=== PATIENT | male | born 1975 | race African-American/Black ===

== ENCOUNTER 2022-09-27 14:33 | Emergency (ER) | payer BC, SELFPAY ==
[2022-09-27 15:00] VITALS: BP 190/115; PULSE 89; RESP 18; TEMP 36.6; O2SAT 100; BMI 26.4
--- NOTE | 2022-09-27 15:12 | EXP.UTC ---
Discharge Plan Disposition Patient Disposition: Home, Self-Care Condition: Good Prescriptions Prescriptions: New amoxicillin-pot clavulanate 875-125 mg Tablet 1 tab PO Q12H Qty: 20 0RF Activity Restrictions/Add. Instructions Additional Instructions/Restrictions: *Monitor Temp, Over the counter Motrin or Tylenol as directed/as needed Tylenol every 4 hours and Motrin every 6 hours (as long as your family doctor has told you that you can take it) for fever or pain. and straight to ER if unable to lower temp less than 101.0 after medication given *Warm salt water gargles may help to soothe the throat *Throat Lozenges? *Warm fluids like tea with honey may help to soothe the throat? *Sleep elevated *Humidifier/Vaporizer Make sure to Call Family Doctor for appointment for re-check of your blood pressure and further treatment you was given card of provider that is accepting patients Follow up IMMEDIATELY for new or worsening symptoms or no Noticeable improvement over the next 48-72 hours. 911 for difficulty breathing or swallowing Clinical Impressions Clinical Impression: Otitis media Qualifiers: Otitis media type: unspecified Laterality: left Qualified Code(s): H66.92 - Otitis media, unspecified, left ear Instructions Patient Instructions: Middle Ear Infection Discharge ED Provider: Tracy Cook [facility] General Stated complaint: ear pain Time Seen by Provider: 09/27/22 15:12 History of Present Illness Provider Complaint: Patient states that he has been having pain in his left ear for over a week States that he has been checking his blood pressure and it has been up and down but he doesnt have a family doctor to see to see what he needs to do or if he needs medication but he is not here for that today he wants to get his ear checked Related Data Previous Rx's Medication Instructions Recorded amoxicillin 875 mg-potassium 1 tab PO Q12H #20 tabs 09/27/22 clavulanate 125 mg tablet Allergies Allergy/AdvReac Type Severity Reaction Status Date / Time No Known Allergies Allergy Verified 09/27/22 15:20 [facility] Disclaimer: The information contained in this section may have been updated after the patient was seen, as this information can be updated by other users. Social History Smoking Status: Unknown if ever smoked alcohol intake: never current occupational status: employed Travel in the last 8 weeks: None ROS Obtained: Yes All systems reviewed & no additional complaints except as documented and Yes Systems reviewed as appropriate & no additional complaints except as documented Constitutional Constitutional: Reports system reviewed and no additional complaints, except as documented, Reports as per HPI and Denies headache(s) Eyes Eyes: Reports system reviewed and no additional complaints, except as documented, Reports as per HPI, Denies blurry vision and Denies loss of vision ENT Ears, Nose, Mouth, and Throat: Reports system reviewed and no additional complaints, except as documented, Reports as per HPI, Reports otalgia and Denies headache(s) Cardiovascular Cardiovascular: Reports system reviewed and no additional complaints, except as documented, Reports as per HPI and Denies chest pain Respiratory Respiratory: Reports system reviewed and no additional complaints, except as documented and Reports as per HPI Gastrointestinal Gastrointestingal: Reports system reviewed and no additional complaints, except as documented and as per HPI Genitourinary Male Genitourinary: Reports system reviewed and no additional complaints, except as documented and Reports as per HPI Neurologic Neurologic: Denies headache(s) and Denies loss of vision Physical Exam General General appearance: alert and in no apparent distress Expanded ENT Exam TM/Canal exam: Left TM: erythema Respiratory Respiratory exam: Present normal lung sounds bilaterally; Absent respiratory distress or wheezes Car
[2022-09-27 15:19] VITALS: BP 156/99; PULSE 85; RESP 16; TEMP 36.8; O2SAT 100; BMI 26.4
[2022-09-27 15:29] VITALS: BP 156/99; PULSE 85; RESP 16; TEMP 36.8
== END 2022-09-27 15:30 | disposition home or self-care (01) ==
LOC: ER 14:55 → UTC 14:55
PROVIDERS: Emergency Provider Nurse Practitioner
DX: H66.92 Otitis media, unspecified, left ear (principal)
CPT/HCPCS: 99212; G0463

== ENCOUNTER → 2022-10-15 14:21 | Outpatient (CLI) | payer BC, SELFPAY | PROVIDERS: PCP Family Medicine; Visit Provider Family Medicine | DX: R06.83 Snoring (principal); R53.83 Other fatigue; G47.33 Obstructive sleep apnea (adult) (pediatric) | CPT/HCPCS: G0399 ==

== ENCOUNTER 2022-10-17 19:32 | Emergency (ER) | payer BC, SELFPAY ==
[2022-10-17 19:33] VITALS: BP 153/98; PULSE 84; RESP 16; TEMP 36.5; O2SAT 97; BMI 26.6
--- NOTE | 2022-10-17 19:47 | HMH.EDEAR ---
Discharge Plan Disposition Patient Disposition: Home, Self-Care Condition: Good Prescriptions Prescriptions: New cefdinir 300 mg capsule 300 mg PO BID 10 Days Qty: 20 0RF No Action nicotine [Nicoderm CQ] 21 mg/24 hr patch 24 hour 1 patch transdermal DAILY Qty: 28 0RF amlodipine 5 mg tablet 5 mg PO DAILY Qty: 30 1RF amoxicillin-pot clavulanate 875-125 mg Tablet 1 tab PO Q12H Qty: 20 0RF Referrals Follow up/Referrals: Ellen Caro DO [Primary Care Provider] - See instructions Clinical Impressions Clinical Impression: Otitis media Discharge ED Provider: Jordy Pollack Ear HPI General Chief complaint: Ear Stated complaint: bilateral ear pain Time Seen by Provider: 10/17/22 19:32 Mode of Arrival: Ambulatory Source of Information: Patient Limitations: No Limitations Description of Symptoms (Recalled from ER Triage Doc. by RN): pt c/o bilateral ear pain x 3 weeks History of Present Illness HPI Narrative: Patient is a 47-year-old male with a past medical history of recent diagnosis of otitis media who presents with ear pain. He says that he has been having bilateral ear pain for the last 3 weeks. He says around [place] he was given a prescription for amoxicillin to treat an ear infection. He says he finished his prescription but his symptoms have continued to persist. He says he feels like he is swimming underwater. He denies any mastoid pain or tenderness. Denies any fever or chills. Related Data Previous Rx's Medication Instructions Recorded amoxicillin 875 mg-potassium 1 tab PO Q12H #20 tabs 09/27/22 clavulanate 125 mg tablet amlodipine 5 mg tablet 5 mg PO DAILY #30 tabs 09/28/22 nicotine 21 mg/24 hr daily 1 patch transdermal DAILY #28 ea 09/28/22 transdermal patch (Nicoderm CQ) cefdinir 300 mg capsule 300 mg PO BID 10 days #20 caps 10/17/22 Allergies Allergy/AdvReac Type Severity Reaction Status Date / Time No Known Allergies Allergy Verified 09/28/22 11:07 [facility] Disclaimer: The information contained in this section may have been updated after the patient was seen, as this information can be updated by other users. Surgical History (Updated 09/28/22 @ 11:09 by DyanaLINDA Culp No history of previous surgery Social History (Updated 09/27/22 @ 15:27 by Tracy Cook APRN) Smoking Status: Never smoker alcohol intake: never current occupational status: employed Travel in the last 8 weeks: None ROS Obtained: Yes All systems reviewed & no additional complaints except as documented A 14 point review of system was obtained and otherwise negative except per HPI Physical Exam General General appearance: alert and in no apparent distress Head Head exam: atraumatic, normocephalic and normal inspection Eye Eye exam: Present normal appearance, PERRL and EOMI ENT ENT exam: Present normal exam, normal oropharynx, mucous membranes moist and normal external ear exam Expanded ENT Exam TM/Canal exam: Bilateral TM: erythema, bulging and effusion Neck Neck exam: Present normal inspection, full ROM and trachea midline; Absent meningismus or lymphadenopathy Chest Chest inspection: Present normal inspection and symmetric chest wall rise; Absent tenderness Respiratory Respiratory exam: Present normal lung sounds bilaterally; Absent respiratory distress Cardiovascular Cardiovascular exam: Present regular rate and normal rhythm; Absent JVD Abdominal Exam Abdominal exam: Present soft and normal bowel sounds; Absent distention, tenderness or guarding Extremities Exam Extremities exam: Present normal inspection, full ROM and normal capillary refill; Absent calf tenderness Back Exam Back exam: Present normal inspection; Absent tenderness Neurological Exam Neurological exam: Present alert and oriented X3 Psychiatric Psychiatric exam: Present normal affect and normal mood Skin Skin exam: Present warm, dry, intact and normal color Lymphatic Lymphatic F
[2022-10-17 19:52] VITALS: BP 153/98; PULSE 84; RESP 16; TEMP 36.5; O2SAT 97
== END 2022-10-17 19:54 | disposition home or self-care (01) ==
LOC: ER 19:42
PROVIDERS: Emergency Provider Student in an Organized Health Care Education/Training Program; PCP Family Medicine
DX: H66.93 Otitis media, unspecified, bilateral (principal)
CPT/HCPCS: 99283; 99284

== ENCOUNTER → 2022-10-26 10:51 | Outpatient (CLI) | payer BC, SELFPAY ==
[2022-10-26 10:56] LABS: MANUAL DIFFERENTIAL MANUAL DIFFERENTIAL (MANUAL DIFF); Microscopic, Urine URINE MICROSCOPIC (MICROSCOPIC)
[2022-10-26 11:28] LABS: Appearance,Urine CLEAR (Clear); Bilirubin,Urine Negative (Negative); Blood, Urine Negative (Negative); Color,Urine YELLOW (Yellow); Glucose,Urine (UA) Negative (Negative); Ketones,Urine Negative (Negative); Leukocyte Esterase,Urine Negative (Negative); Nitrate,Urine Negative (Negative); Protein,Urine Negative (Negative); Urobilinogen,Urine 0.2 EU/dl (0.2)
[2022-10-26 11:30] LABS: Basophils # 0.1 K/mm3 (0-0.2); Eosinophils # 0.3 K/mm3 (0.0-0.4); Eosinophils % 5.2 % (0.1-12.0); Hematocrit 43.1 % (42.0-52.0); Lymphocytes # 3.4 K/mm3 (0.7-4.5); Lymphocytes % 57.7 % (10-50); Mean Corpuscular HGB Conc 32.6 g/dL (31.8-35.4); Mean Corpuscular Hemoglobin 29.8 pg (27.0-31.2); Mean Corpuscular Volume 91.5 fl (80-94); Mean Platelet Volume 7.7 fl (7.4-10.4); Monocytes # 0.4 K/mm3 (0.1-1.0); Monocytes % 6.1 % (1.7-9.3); Neutrophils # 1.8 K/mm3 (1.8-7.8); Neutrophils % 30.1 % (37.0-80.0); Platelet Count 276 K/mm3 (142-424); Red Cell Distribution Width 13.8 % (11.5-17.5); White Blood Count 5.8 K/mm3 (4.8-10.8)
[2022-10-26 11:37] LABS: Bacteria,Urine Trace /lpf; WBC,Urine Occasional #/hpf (0-3)
[2022-10-26 11:51] LABS: Alanine Aminotransferase 35 U/L (12-78); Albumin Level 4.6 g/dl (3.5-5.0); Albumin/Globulin Ratio 1.9 (1.1-1.8); Alkaline Phosphatase 64 U/L (38-126); Anion Gap 7.7 mEq/L (5-15); Aspartate Amino Transferase 42 U/L (17-59); Bilirubin,Total 0.3 mg/dl (0.2-1.3); Blood Urea Nitrogen 7 mg/dl (9-20); Calcium 8.6 mg/dl (8.4-10.2); Carbon Dioxide 31 mmol/L (22.0-30.0); Chloride 105 mmol/L (98-107); Chol/HDL Ratio 4.4 (1-3.5); Cholesterol 226 mg/dl (140-200); Eosinophils % 2 % (0-3); Estimated Glomerular Filt Rate 80 ml/min (>60); GFR (African American) 97 ML/MIN (>60); Globulin 2.4 g/dL (1.3-3.2); Glucose 98 mg/dl (74-100); HDL Cholesterol 51 mg/dl (40-60); Lymphocytes % 62 % (10-50); Monocytes % 6 % (2-9); Neutrophils % 30 % (42-76); Potassium 3.7 mmoL/L (3.5-5.1); Sodium 140 mmol/L (136-145); Total Cells Counted 100; Triglycerides 216 mg/dl (30-150); VLDL Cholesterol 43 mg/dL (0-40)
[2022-10-26 11:52] LABS: Platelet Estimate Normal; RBC Morphology Normal
[2022-10-26 12:03] LABS: Direct LDL Cholesterol 110.63 mg/dL (100-129)
[2022-10-26 12:22] LABS: Prostate Specific Ag Screen 0.4 ng/ml (0.0-4.0); Thyroid Stimulating Hormone 0.79 uIU/mL (0.465-4.68)
== END ==
PROVIDERS: PCP Family Medicine; Visit Provider Family Medicine
DX: I10 Essential (primary) hypertension (principal); R53.83 Other fatigue; Z12.5 Encounter for screening for malignant neoplasm of prostate
CPT/HCPCS: 36415; 80053; 80061; 81001; 84443; 85007; 85014; 85018; 85048; 85049; G0103

== ENCOUNTER → 2023-01-18 11:20 | Outpatient (CLI) | payer BC, SELFPAY ==
[2023-01-18 12:35] LABS: Chloride 103 mmol/L (98-107); Potassium 4.3 mmoL/L (3.5-5.1); Sodium 139 mmol/L (136-145)
[2023-01-18 12:37] LABS: Alanine Aminotransferase 54 U/L (12-78); Aspartate Amino Transferase 49 U/L (17-59); Bilirubin,Total 0.5 mg/dl (0.2-1.3); Blood Urea Nitrogen 7 mg/dl (9-20); Estimated Glomerular Filt Rate 90 ml/min (>60); GFR (African American) 109 ML/MIN (>60)
[2023-01-18 12:38] LABS: Albumin Level 4.9 g/dl (3.5-5.0); Albumin/Globulin Ratio 2.1 (1.1-1.8); Alkaline Phosphatase 67 U/L (38-126); Anion Gap 8.3 mEq/L (5-15); Calcium 9.2 mg/dl (8.4-10.2); Carbon Dioxide 32 mmol/L (22.0-30.0); Chol/HDL Ratio 3.5 (1-3.5); Cholesterol 220 mg/dl (140-200); Globulin 2.3 g/dL (1.3-3.2); Glucose 98 mg/dl (74-100); HDL Cholesterol 63 mg/dl (40-60); Total Protein,Serum 7.2 g/dl (6.3-8.2); Triglycerides 147 mg/dl (30-150); VLDL Cholesterol 29 mg/dL (0-40)
== END ==
PROVIDERS: PCP Family Medicine; Visit Provider Family Medicine
DX: I10 Essential (primary) hypertension (principal); E78.5 Hyperlipidemia, unspecified
CPT/HCPCS: 36415; 80053; 80061

== ENCOUNTER → 2023-04-21 12:03 | Outpatient (CLI) | payer BC, SELFPAY ==
[2023-04-21 13:27] LABS: Alanine Aminotransferase 29 U/L (12-78); Albumin Level 4.1 g/dl (3.5-5.0); Alkaline Phosphatase 63 U/L (38-126); Anion Gap 8.2 mEq/L (5-15); Aspartate Amino Transferase 44 U/L (17-59); Bilirubin,Total 0.3 mg/dl (0.2-1.3); Blood Urea Nitrogen 10 mg/dl (9-20); Calcium 8.7 mg/dl (8.4-10.2); Carbon Dioxide 28 mmol/L (22.0-30.0); Chloride 108 mmol/L (98-107); Chol/HDL Ratio 3.5 (1-3.5); Cholesterol 182 mg/dl (140-200); Estimated Glomerular Filt Rate 79 ml/min (>60); GFR (African American) 96 ML/MIN (>60); Globulin 2.1 g/dL (1.3-3.2); Glucose 100 mg/dl (74-100); HDL Cholesterol 52 mg/dl (40-60); Potassium 4.2 mmoL/L (3.5-5.1); Sodium 140 mmol/L (136-145); Total Protein,Serum 6.2 g/dl (6.3-8.2); Triglycerides 63 mg/dl (30-150); VLDL Cholesterol 13 mg/dL (0-40)
[2023-04-21 13:38] LABS: Direct LDL Cholesterol 97.97 mg/dL (100-129)
== END ==
PROVIDERS: PCP Nurse Practitioner Family; Visit Provider Family Medicine
DX: E78.5 Hyperlipidemia, unspecified (principal); I10 Essential (primary) hypertension
CPT/HCPCS: 36415; 80053; 80061

== ENCOUNTER 2023-09-22 12:26 | Day surgery (SDC) | payer BC, SELFPAY ==
[2023-09-20 14:16] VITALS: BMI 25.8
[2023-09-22 13:12] VITALS: BP 159/94; PULSE 72; RESP 18; TEMP 36.7; O2SAT 98
--- NOTE | 2023-09-22 14:25 | EXP.ANES.CKL ---
[facility] Disclaimer: The information contained in this section may have been updated after the patient was seen, as this information can be updated by other users. Medical History Carpal tunnel syndrome Hyperlipidemia Hypertension Surgical History No history of previous surgery Family History Other Family history of diabetes mellitus type II Family history of hypertension Social History Smoking Status: Current every day smoker tobacco type: cigarettes quit status: considering quitting alcohol intake: never substance use type: denies use current occupational status: employed Travel in the last 8 weeks: None caffeine: No [facility] Anesthesia Checklist Patient Identification Patient Identification: Arm Band and Verbal (Name & ) Structural Data Admitted From: Home Planned Operative Procedure/s: Colonoscopy Consent for Planned Operative Procedure(s) Verified: Yes Verified Documents: Surgical Consent and History and Physical NPO Status Verified Time NPO: 05:00 Chart Verification Results Verified: CBC and BMP Additional verifications Patient : No Anesthesia Reactions: No Cardiovascular Assessment Heart Sounds: S1 & S2 Pulse Rhythm: Irregular Peripheral Edema: No Airway Assessment Mallampati Score:: Class II C-Spine Mobility Assessed: Yes (FROM) TMJ Mobility Assessed: Yes Dentition: Edentulous Neurological Assessment Level of Consciousness: Awake, Alert, Appropriate and Follows Commands Hx Seizures: No Numbness or tingling in extremities: No Anesthesia Plan Anesthesia Risk discussed: Yes Anesthesia Plan: Verified ASA Class: III Anesthesia Type: MAC
[2023-09-22 14:29] VITALS: O2SAT 98
--- NOTE | 2023-09-22 14:37 | HMH.SCOPE ---
Procedure: Date: 09/22/23 Patient Date of :: 1975 Procedure Performed:: Colonoscopy Indications:: Screening colonoscopy Performing Provider:: Edward Vazquez MD Referring Provider:: Maria Del Carmen Desir APRN Sedation:: See RN records Procedure:: After placing the patient in the left lateral decubitus position, the colonoscopy was gently inserted into the rectum and under direct visualization advanced to the sigmoid colon. The bowel preparation was inadequate for screening and the procedure was aborted. Findings:: Inadequate bowel preparation for screening colonoscopy. The procedure was aborted Recommendations:: Repeat colonscopy with 2 days liquid diet and split dose bowel preparation Complications:: None Estimated blood obtained (mL): 0 Colonoscopy Component Colonoscopy Component Was a colonoscopy performed during today's procedure?: Yes Recommended follow up colonoscopy of at least 10 years?: Yes
[2023-09-22 14:41] VITALS: BP 131/81; PULSE 76; RESP 14; TEMP 36.4; O2SAT 96
--- NOTE | 2023-09-22 14:48 | P.PNANES_ITS ---
[facility] Anesthesia Record Part I Anesthesia Record I Intake, IV Amount: 300 Hydration: Adequate Estimated blood loss (mL): 0 Urine output (mL): 0 Blood Products used (#): none Blood Pressure: 131/81 SaO2: 96 Pulse Rate: 83 Airway Patency: Patent Respiratory Rate: 16 Temperature: 97.5 F Patient is:: Awake (Talking) Stable to PACU at:: 14:45
[2023-09-22 14:49] VITALS: BP 131/81; PULSE 83; RESP 16; TEMP 36.4; O2SAT 96
[2023-09-22 14:50] VITALS: BP 143/79; PULSE 69; RESP 16; O2SAT 98
[2023-09-22 15:00] VITALS: BP 152/98; PULSE 72; RESP 16; O2SAT 99
== END 2023-09-22 15:01 | disposition home or self-care (01) ==
PROVIDERS: PCP Nurse Practitioner Family; Visit Provider Internal Medicine
PROC: (CPT 45378; principal; 2023-09-22 13:30)
DX: Z12.11 Encounter for screening for malignant neoplasm of colon (principal); Z91.199 Patient's noncompliance with other medical treatment and regimen due to unspecified reason
CPT/HCPCS: 45378

== ENCOUNTER 2023-11-17 09:23 | Day surgery (SDC) | payer BC, SELFPAY ==
[2023-11-15 13:07] VITALS: BMI 27.3
[2023-11-17] MEDS: LACTATED RINGERS 1000ML 1,000 ML 25 ML IV (09:37)
[2023-11-17 09:40] VITALS: BP 176/99; PULSE 74; RESP 18; TEMP 36.3; O2SAT 98
--- NOTE | 2023-11-17 10:37 | P.PNANES_ITS ---
[facility] Disclaimer: The information contained in this section may have been updated after the patient was seen, as this information can be updated by other users. Medical History Carpal tunnel syndrome Hyperlipidemia Hypertension Surgical History No history of previous surgery Family History Other Family history of diabetes mellitus type II Family history of hypertension Social History Smoking Status: Current every day smoker tobacco type: cigarettes quit status: considering quitting alcohol intake: never substance use type: denies use current occupational status: employed Travel in the last 8 weeks: None caffeine: No [facility] Anesthesia Checklist Patient Identification Patient Identification: Arm Band and Verbal (Name & ) Structural Data Admitted From: Home Planned Operative Procedure/s: Colonoscopy Consent for Planned Operative Procedure(s) Verified: Yes NPO Status Verified Time NPO: 00:00 Additional verifications Anesthesia Reactions: No Airway Assessment Mallampati Score:: Class II C-Spine Mobility Assessed: Yes TMJ Mobility Assessed: Yes Dentition: Edentulous Neurological Assessment Level of Consciousness: Awake Hx Seizures: No Numbness or tingling in extremities: No Anesthesia Plan Anesthesia Risk discussed: Yes Anesthesia Plan: Verified ASA Class: II Anesthesia Type: MAC
[2023-11-17 11:18] VITALS: O2SAT 96
[2023-11-17 11:38] VITALS: BP 134/69; PULSE 111; RESP 20; TEMP 36.3; O2SAT 92
--- NOTE | 2023-11-17 11:39 | HMH.SCOPE ---
Procedure: Date: 11/17/23 Patient Date of :: 1975 Procedure Performed:: Colonoscopy Indications:: The patient is a 48-year-old who presents for screening colonoscopy for colorectal cancer. Performing Provider:: Edward Vazquez MD Referring Provider:: Maria Del Carmen Desir APRN Sedation:: See RN records Procedure:: After placing the patient in the left lateral decubitus position, the colonoscopy was gently inserted into the rectum and under direct visualization advanced to the cecum which was identified by transillumination in the right lower quadrant, identification of the ileocecal valve, appendiceal orifice, and cecal strap. Color, texture, mucosa, and anatomy of the colon were carefully examined with the scope. Findings:: Anal canal: normal Rectum:Internal hemorhoids Sigmoid colon: normal without polyps or inflammatory changes Descending colon: normal without polyps or inflammatory changes Splenic flexure: normal Transverse colon: normal without polyps or inflammatory changes Hepatic flexure: normal Ascending colon: normal without polyps or inflammatory changes Cecum: normal Terminal ileum: not visualized Recommendations:: Repeat colonoscopy for screening in 10 years, sooner if clinically indicated Complications:: None Estimated blood obtained (mL): 0 Colonoscopy Component Colonoscopy Component Was a colonoscopy performed during today's procedure?: Yes Recommended follow up colonoscopy of at least 10 years?: Yes
[2023-11-17 11:48] VITALS: BP 115/60; PULSE 94; RESP 20; O2SAT 96
[2023-11-17 11:53] VITALS: BP 139/90; PULSE 85; RESP 18; O2SAT 100
[2023-11-17 12:03] VITALS: BP 129/87; PULSE 89; RESP 16; O2SAT 100
== END 2023-11-17 12:10 | disposition home or self-care (01) ==
PROVIDERS: PCP Nurse Practitioner Family; Visit Provider Internal Medicine
PROC: (CPT 45378; principal; 2023-11-17 11:00)
DX: Z12.11 Encounter for screening for malignant neoplasm of colon (principal); K64.8 Other hemorrhoids
CPT/HCPCS: 45378; J2704

== ENCOUNTER 2023-12-30 15:55 | Emergency (ER) | payer BC, SELFPAY ==
[2023-12-30 16:00] VITALS: BP 168/107; PULSE 96; RESP 18; TEMP 36.6; O2SAT 98; BMI 27.6
--- NOTE | 2023-12-30 16:02 | HMH.EDGENADL ---
Discharge Plan Disposition Patient Disposition: Home, Self-Care Condition: Good Prescriptions Prescriptions: No Action loratadine [Claritin] 10 mg tablet 10 mg PO DAILY Qty: 30 3RF varenicline [Chantix Continuing Month Box] 1 mg tablet 1 mg PO BID Qty: 60 0RF Rx Instructions: Start after starter pack amlodipine 10 mg tablet See Rx Instructions .ROUTE .COMPLEX Qty: 90 0RF Dose Instruction: TAKE 1 TABLET BY MOUTH DAILY Rx Instructions: TAKE 1 TABLET BY MOUTH DAILY atorvastatin 20 mg tablet See Rx Instructions .ROUTE .COMPLEX Qty: 90 0RF Dose Instruction: TAKE 1 TABLET BY MOUTH DAILY Rx Instructions: TAKE 1 TABLET BY MOUTH DAILY meloxicam 7.5 mg tablet See Rx Instructions .ROUTE .COMPLEX Qty: 30 1RF Dose Instruction: TAKE 1 TABLET BY MOUTH DAILY Rx Instructions: TAKE 1 TABLET BY MOUTH DAILY Referrals Follow up/Referrals: Maria Del Carmen Desir APRN [Primary Care Provider] - See instructions Activity Restrictions/Add. Instructions Additional Instructions/Restrictions: You were evaluated in the emergency department today. Please keep your wounds clean and dry. Do not submerge under any water. Apply antibiotic ointment to protect the wounds. I recommend bandaging your wounds to keep them safe and clean at work. Monitor for any signs of infection, such as redness, warmth, or pus draining from the wounds. Return to the emergency department should you develop these. Your sutures will need to be removed in approximately 10 to 14 days. Clinical Impressions Clinical Impression: Laceration of left index finger, Laceration of left thumb Instructions Patient Instructions: DI for Laceration Repair Discharge ED Provider: Ling Batres General Adult HPI General Chief complaint: Extremity Injury, Upper Stated complaint: AO03/21 Lac to fingers Time Seen by Provider: 12/30/23 16:00 History of Present Illness HPI narrative: This patient is a 48-year-old male with history of hypertension and hyperlipidemia presenting to the emergency department for evaluation with concern for laceration to the left index finger and thumb that he had a new blade on 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 He sustained lacerations to the the ulnar aspect of the left thumb on the radial aspect of the left index finger. He denies any numbness, tingling, range of motion limitations, or other concerns. No other injuries noted. He notes the blade was clean when he used it. He is unsure when his last tetanus shot was. Related Data Previous Rx's Medication Instructions Recorded loratadine 10 mg tablet (Claritin) 10 mg PO DAILY #30 tabs 12/09/22 varenicline 1 mg tablet (Chantix 1 mg PO BID #60 tabs 01/27/23 Continuing Month Box) amlodipine 10 mg tablet See Rx Instructions .Route 10/15/23 .COMPLEX #90 tabs atorvastatin 20 mg tablet See Rx Instructions .Route 11/01/23 .COMPLEX #90 tabs meloxicam 7.5 mg tablet See Rx Instructions .Route 12/08/23 .COMPLEX #30 tabs Allergies Allergy/AdvReac Type Severity Reaction Status Date / Time No Known Allergies Allergy Verified 11/17/23 09:37 [facility] Disclaimer: The information contained in this section may have been updated after the patient was seen, as this information can be updated by other users. Medical History Carpal tunnel syndrome Hyperlipidemia Hypertension Surgical History No history of previous surgery Family History Other Family history of diabetes mellitus type II Family history of hypertension Social History Smoking Status: Former smoker tobacco type: cigarettes quit status: considering quitting alcohol intake: never substance use type: denies use current occupational status: employed Travel in the last 8 weeks: None caffeine: No ROS Obtained: Yes All systems reviewed & no additional complaints except as documented Physical Exam General General appearance: alert and in no apparent distress Head Head exam: atraumatic and normocephalic Eye Eye exam: Present normal appearance, PERRL and EOMI ENT ENT exam: Present normal exam, normal oropharynx, mucous membranes moist and normal external ear exam Neck Neck exam: Present normal inspection, full ROM and trachea midline; Absent tenderness Chest Chest inspection: Present normal inspection and symmetric chest wall rise; Absent tenderness Respiratory Respiratory exam: Present normal lung sounds bilaterally; Absent respiratory distress, wheezes, stridor or accessory muscle use Cardiovascular Cardiovascular exam: Present regular rate and normal rhythm Abdominal Exam Abdominal exam: Present soft; Absent distention, tenderness or guarding Extremities Exam Extremities exam: Present full ROM and normal capillary refill; Absent tenderness or edema Expanded Upper Extremity Exam Left: Hand L/R front image: 1. laceration (Linear superficial laceration with some exposure of subcutaneous fat. No deep structure or tendon injury appreciated. No contamination. Neurovascularly intact distally.) Hand L/R back image: 1. Superficial laceration with venous ooze. No obvious deep structure injury. No significant contamination. Comment: Neurovascularly intact distally with intact capillary refill, range of motion, and sensation Back Exam Back exam: Present normal inspection and full ROM; Absent tenderness Neurological Exam Neurological exam: Present alert, oriented X3, CN II-XII intact and normal gait; Absent motor sensory deficit Psychiatric Psychiatric exam: Present normal affect and normal mood Skin Skin exam: Present warm and dry Medical Decision Making Medical Records Medical records reviewed: Yes I reviewed the patient's medical records. Harsh Inquiry Pt receiving controlled substance: No Vital Signs: 12/30/23 16:00 Temperature 97.8 F Temperature Source Oral Pulse Rate [Right] 96 H Respiratory Rate 18 Blood Pressure [Right Arm] 168/107 H Blood Pressure Mean [Right Arm] 127 02 Sat by Pulse Oximetry 98 Oxygen Delivery Method Room Air Lab Data Lab results reviewed: Yes I reviewed the patient's lab results. Orders (Tests/Meds): ED MEDICATIONS Generic Name Dose Route Start Last Admin Trade Name Freq PRN Reason Stop Dose Admin Bacitracin 1 gm 12/30/23 16:38 Bacitracin Zinc Oint 30gm Tube TP 12/30/23 16:39 ONCE ONE Discontinued Medications Generic Name Dose Route Start Last Admin Trade Name Freq PRN Reason Stop Dose Admin Lidocaine HCl 20 ml 12/30/23 16:02 12/30/23 16:16 Lidocaine 1% 20ml Mdv IJ 12/30/23 16:03 20 ml ONCE ONE Administration Tetanus/Reduced Diphtheria/Acell Pertussis 0.5 ml 12/30/23 16:02 12/30/23 16:14 Tet/Diphth/Pert-Adult 0.5ml Syringe IM 12/30/23 16:03 0.5 ml .ONCE ONE Administration Medical Decision Narrative: In summary, this patient is a 48-year-old male presenting to the Emergency Department for evaluation of laceration to the left thumb and index finger sustained while using a switchbox assembler. Differential diagnoses considered include but are not limited to laceration, abrasion, foreign body, neurovascular injury, tendon injury. Ruling out the most morbid conditions drove assessment. On exam, the patient is neurovascularly intact with intact range of motion and no concern for tenderness injury based on exam. He is unsure when his last tetanus shot was, so Tdap booster was administered. Based on exam, I do not feel that labs or imaging are indicated. Patient consents to laceration repair at this time. Patient's lacerations were repaired. Digital block was performed of the left thumb, and local anesthesia was injected into the wound of the left index finger. Please see procedure note for further documentation. Patient tolerated this very well with good approximation of his wounds and no changes in his neurovascular status with the exception of the expected numbing from the digital block. Patient was hemostatic after laceration repair. Bacitracin was applied, and dressing was applied. At this time, it is felt the patient is appropriate for discharge with instructions for supportive management, wound care, and outpatient follow-up for suture removal. Strict return precautions were given, and the patient was discharged in stable condition after all questions were answered Procedures Risk/Benefits of Procedure(s) Were Explained: Yes Laceration Laceration 1: Site: thumb Side (If applicable): left Size (cm): 1.5 Description: flap Depth: simple, single layer Local Anesthetic: lidocaine 1% (Digital nerve block was performed) Amount of anesthesia used (mL): 8 Pre-repair: wound explored, irrigated extensively and deep structures intact Skin layer closed with: nylon Size (cm): 4-0 Number of sutures: 5 Technique: simple, interrupted Laceration 2: Site: finger Side (If applicable): left (Index) Size (cm): 2 Description: linear Depth: simple, single layer Local Anesthetic: lidocaine 1% Amount of anesthesia used (mL): 5 Pre-repair: wound explored, irrigated extensively and deep structures intact Skin layer closed with: nylon Size (cm): 3-0 Number of sutures: 4 Technique: simple, interrupted Nerve Block Nerve Block 1: Time out performed: Yes Amount of anesthesia used (mL): 8 Side: Left Nerve Blocks: digital (Left thumb) Procedure Successful: Yes Patient Tolerated Procedure: well and no complications Complications: none Critical Care Critical Care Time Critical Care Time: No
[2023-12-30] MEDS: TET/DIPHTH/PERT-ADULT 0.5ML SYRINGE 0.5 ML IM (16:14)
[2023-12-30] MEDS: LIDOCAINE 1% 20ML MDV 20 ML IJ (16:16)
[2023-12-30 16:41] VITALS: BP 171/102; PULSE 82; RESP 16; O2SAT 99
[2023-12-30] MEDS: BACITRACIN ZINC OINT 30GM TUBE TP (16:47)
[2023-12-30 17:00] VITALS: BP 156/89; PULSE 75; RESP 18; TEMP 36.8; O2SAT 98
== END 2023-12-30 17:00 | disposition home or self-care (01) ==
PROVIDERS: Emergency Provider Emergency Medicine; PCP Nurse Practitioner Family
DX: S61.211A Laceration without foreign body of left index finger without damage to nail, initial encounter (principal); S61.012A Laceration without foreign body of left thumb without damage to nail, initial encounter; I10 Essential (primary) hypertension; E78.5 Hyperlipidemia, unspecified; Z87.891 Personal history of nicotine dependence; W26.8XXA Contact with other sharp object(s), not elsewhere classified, initial encounter; Z23 Encounter for immunization
CPT/HCPCS: 12002; 64450; 90471; 90715; 99283

== ENCOUNTER 2024-01-31 13:57 | Outpatient (CLI) | payer BC, SELFPAY ==
[2024-01-31 14:12] LABS: Basophils # 0.1 K/mm3 (0-0.2); Basophils % 0.7 % (0.1-2.0); Eosinophils # 0.2 K/mm3 (0.0-0.4); Eosinophils % 3.2 % (0.1-12.0); Hematocrit 46.2 % (42.0-52.0); Hemoglobin 15.3 g/dL (14.1-18.0); Lymphocytes # 3.5 K/mm3 (0.7-4.5); Lymphocytes % 49.3 % (10-50); Mean Corpuscular HGB Conc 33.2 g/dL (31.8-35.4); Mean Corpuscular Hemoglobin 30.4 pg (27.0-31.2); Mean Corpuscular Volume 91.5 fl (80-94); Mean Platelet Volume 8.9 fl (7.4-10.4); Monocytes # 0.3 K/mm3 (0.1-1.0); Monocytes % 4.6 % (1.7-9.3); Neutrophils % 42.1 % (37.0-80.0); Platelet Count 205 K/mm3 (142-424); Red Blood Count 5.05 M/mm3 (4.60-6.20); Red Cell Distribution Width 13.8 % (11.5-17.5); White Blood Count 7.2 K/mm3 (4.8-10.8)
[2024-01-31 14:35] LABS: Microscopic, Urine URINE MICROSCOPIC (MICROSCOPIC)
[2024-01-31 14:49] LABS: Chloride 105 mmol/L (98-107); Potassium 4.2 mmoL/L (3.5-5.1); Sodium 140 mmol/L (136-145)
[2024-01-31 14:51] LABS: Alanine Aminotransferase 32 U/L (12-78); Alkaline Phosphatase 84 U/L (38-126); Anion Gap 10.2 mEq/L (5-15); Aspartate Amino Transferase 52 U/L (17-59); Bilirubin,Total 0.5 mg/dl (0.2-1.3); Blood Urea Nitrogen 10 mg/dl (9-20); Carbon Dioxide 29 mmol/L (22.0-30.0); Estimated Glomerular Filt Rate 79 ml/min (>60); GFR (African American) 96 ML/MIN (>60); Iron 111 ug/dL (49-181)
[2024-01-31 14:52] LABS: Albumin Level 4.7 g/dl (3.5-5.0); Albumin/Globulin Ratio 2.1 (1.1-1.8); Calcium 9.8 mg/dl (8.4-10.2); Chol/HDL Ratio 3.1 (1-3.5); Cholesterol 227 mg/dl (140-200); Globulin 2.2 g/dL (1.3-3.2); Glucose 91 mg/dl (74-100); HDL Cholesterol 74 mg/dl (40-60); Magnesium 1.9 mg/dl (1.6-2.3); Total Protein,Serum 6.9 g/dl (6.3-8.2); Triglycerides 95 mg/dl (30-150); VLDL Cholesterol 19 mg/dL (0-40)
[2024-01-31 15:05] LABS: Direct LDL Cholesterol 107.74 mg/dL (100-129)
[2024-01-31 15:11] LABS: Total Iron Binding Capacity 331 ug/dL (261-462)
[2024-01-31 15:23] LABS: Thyroid Stimulating Hormone 1.09 uIU/mL (0.465-4.68)
[2024-01-31 15:27] LABS: Ferritin 70.7 ng/ml (17.9-464)
[2024-01-31 15:42] LABS: Hemoglobin A1C 5.9 % (4.0-6.0)
[2024-01-31 15:59] LABS: Appearance,Urine CLEAR (Clear); Bilirubin,Urine Negative (Negative); Blood, Urine Negative (Negative); Color,Urine YELLOW (Yellow); Glucose,Urine (UA) Negative (Negative); Ketones,Urine Negative (Negative); Leukocyte Esterase,Urine Negative (Negative); Nitrate,Urine Negative (Negative); Protein,Urine Negative (Negative); Specific Gravity, Urine <= 1.005 (1.005-1.030); Urobilinogen,Urine 0.2 EU/dl (0.2)
[2024-01-31 16:16] LABS: Free T4 (Free Thyroxine) 1.12 ng/dl (0.78-2.19)
[2024-01-31 16:31] LABS: Prostate Specific Ag Screen 0.4 ng/ml (0.0-4.0)
[2024-01-31 16:50] LABS: Vitamin B12 273 pg/mL (239-931)
[2024-01-31 16:57] LABS: 25-OH Vitamin D, Total < 12.8 ng/mL (30-100)
[2024-02-01 06:12] LABS: HBsAg Screen Negative (Negative); HCV Ab Non Reactive (Non Reactive); HIV Screen 4th Generation wRfx Non Reactive (Non Reactive); Hep A Ab, IGM Negative (Negative); Hep B Core Ab, IgM Negative (Negative)
[2024-02-01 14:46] LABS: Rapid Plasma Reagin Ab Titer Non Reactive titer (NonRea<1:1)
[2024-02-03 10:42] LABS: Neisseria gonorrhoeae, NAA Negative (Negative)
== END 2024-01-31 23:59 | disposition home or self-care (01) ==
LOC: LAB.DROPOF 13:57
PROVIDERS: PCP Nurse Practitioner Family; Visit Provider Nurse Practitioner Family
DX: R53.83 Other fatigue (principal); M79.641 Pain in right hand; M79.642 Pain in left hand; Z11.3 Encounter for screening for infections with a predominantly sexual mode of transmission; I10 Essential (primary) hypertension; Z13.1 Encounter for screening for diabetes mellitus; G47.33 Obstructive sleep apnea (adult) (pediatric); E78.5 Hyperlipidemia, unspecified; Z12.5 Encounter for screening for malignant neoplasm of prostate; Z11.4 Encounter for screening for human immunodeficiency virus [HIV]; E55.9 Vitamin D deficiency, unspecified
CPT/HCPCS: 80053; 80061; 80074; 81001; 82306; 82607; 82728; 83036; 83540; 83550; 83735; 84156; 84439; 84443; 85025; 86593; 86703; 87086; 87491; 87591; G0103; G0432

== ENCOUNTER 2024-02-16 11:01 | Outpatient (CLI) | payer BC, SELFPAY ==
--- NOTE | 2024-02-16 11:07 | CT_ITS ---
FINAL REPORT TECHNIQUE: Axial CT images of the chest were obtained without contrast. Low-dose protocol was utilized. This study was performed with techniques to keep radiation doses as low as reasonably achievable (ALARA). Individualized dose reduction techniques using automated exposure control or adjustment of mA and/or kV according to the patient's size were employed. CLINICAL HISTORY: lung cancer screening, current smoker, 1ppd, 18 years COMPARISON: None FINDINGS: CT CHEST WITHOUT, LOW DOSE SCREENING CT Di Vol: 2.90 mGy DLP: 103.68 mGy*cm There is no axillary, mediastinal, or hilar adenopathy. The heart size is normal. There is no pleural or pericardial effusion. The lung windows show no suspicious mass or nodule. Mild scarring is noted. Limited images of the upper abdomen demonstrate no acute findings. IMPRESSION: LR Category 1: 12 month follow-up low-dose chest CT is recommended. Reviewed, Interpreted and Dictated by Kahlil Lindsay III, MD Transcribed by Deepali Sheehan Authenticated and [facility]
== END 2024-02-16 23:59 | disposition home or self-care (01) ==
LOC: RAD 11:03
PROVIDERS: PCP Nurse Practitioner Family; Visit Provider Nurse Practitioner Family
DX: Z87.891 Personal history of nicotine dependence (principal); Z12.2 Encounter for screening for malignant neoplasm of respiratory organs
CPT/HCPCS: 71271

== ENCOUNTER 2024-05-01 13:48 | Outpatient (CLI) | payer BC, SELFPAY ==
[2024-05-01 12:56] LABS: Chol/HDL Ratio 3.2 (1-3.5); Cholesterol 177 mg/dl (140-200); HDL Cholesterol 56 mg/dl (40-60); Triglycerides 197 mg/dl (30-150); VLDL Cholesterol 39 mg/dL (0-40)
[2024-05-01 13:07] LABS: Direct LDL Cholesterol 67.82 mg/dL (100-129)
[2024-05-01 13:45] LABS: Vitamin B12 255 pg/mL (239-931)
[2024-05-01 13:56] LABS: 25-OH Vitamin D, Total 75.7 ng/mL (30-100)
== END 2024-05-01 23:59 | disposition home or self-care (01) ==
LOC: LAB.DROPOF 13:48
PROVIDERS: PCP Nurse Practitioner Family; Visit Provider Nurse Practitioner Family
DX: E55.9 Vitamin D deficiency, unspecified (principal); E78.5 Hyperlipidemia, unspecified; E53.8 Deficiency of other specified B group vitamins
CPT/HCPCS: 80061; 82306; 82607

== ENCOUNTER 2024-05-08 09:38 | Outpatient (CLI) | payer BC, SELFPAY ==
--- NOTE | 2024-05-08 09:41 | XR_ITS ---
FINAL REPORT CLINICAL HISTORY: right wrist pain COMPARISON: None FINDINGS: AP, oblique, and lateral views of the right wrist were obtained. There is no prior exam for comparison. There is no acute fracture or dislocation. There is early degenerative change present involving the first CMC joint. The soft tissues are normal. IMPRESSION: No acute osseous abnormality of the right wrist. If pain persists, MR is recommended. Reviewed, Interpreted and Dictated by Ana Ghosh MD Transcribed by Stephanie Braga Authenticated and . [facility]
--- NOTE | 2024-05-08 09:41 | XR_ITS ---
FINAL REPORT CLINICAL HISTORY: left wrist pain COMPARISON: None FINDINGS: AP, oblique, and lateral views of the left wrist were obtained. There is no prior exam for comparison. There is no acute fracture or dislocation. Early degenerative changes noted involving the first CMC joint. The soft tissues are normal. IMPRESSION: No acute osseous abnormality of the left wrist. If pain persists, MR is recommended. Reviewed, Interpreted and Dictated by Ana Ghosh MD Transcribed by Stephanie Braga Authenticated and [facility]
== END 2024-05-08 23:59 | disposition home or self-care (01) ==
LOC: RAD 09:38
PROVIDERS: PCP Nurse Practitioner Family; Visit Provider Physician Assistant
DX: M25.531 Pain in right wrist (principal); M25.532 Pain in left wrist
CPT/HCPCS: 73110

== ENCOUNTER 2024-06-07 09:19 | Day surgery (SDC) | payer BC, SELFPAY ==
[2024-06-07 09:39] VITALS: BMI 24.6
[2024-06-07 10:03] VITALS: BMI 24.6
[2024-06-07 10:10] VITALS: BP 140/71; PULSE 51; RESP 18; TEMP 36.5; O2SAT 99
[2024-06-07] MEDS: LACTATED RINGERS 1000ML 1,000 ML 25 ML IV (10:16)
--- NOTE | 2024-06-07 10:37 | EXP.ANES.CKL ---
[facility] Disclaimer: The information contained in this section may have been updated after the patient was seen, as this information can be updated by other users. Medical History Bilateral otitis media Otitis media Encounter for removal of sutures Laceration of left thumb Laceration of left index finger Carpal tunnel syndrome Hyperlipidemia Hypertension Surgical History History of colonoscopy Family History Other Family history of diabetes mellitus type II Family history of hypertension Social History Smoking Status: Former smoker tobacco type: cigarettes quit status: considering quitting alcohol intake: never substance use type: denies use current occupational status: employed Travel in the last 8 weeks: None caffeine: No [facility] Anesthesia Checklist Patient Identification Patient Identification: Arm Band Structural Data Admitted From: Home Planned Operative Procedure/s: Right Carpal Tunnel Release Consent for Planned Operative Procedure(s) Verified: Yes Verified Documents: Surgical Consent and History and Physical NPO Status Verified Time NPO: 00:00 Additional verifications Anesthesia Reactions: No Hx Blood Transfusions: No Blood Transfusion Reaction: No Airway Assessment Mallampati Score:: Class II C-Spine Mobility Assessed: Yes TMJ Mobility Assessed: Yes Dentition: Edentulous Neurological Assessment Level of Consciousness: Awake, Alert and Appropriate Anesthesia Plan Anesthesia Risk discussed: Yes Anesthesia Plan: Verified ASA Class: II Anesthesia Type: General
[2024-06-07] MEDS: CEFAZOLIN SODIUM 2 GM in 0.9 % SODIUM CHLORIDE 100 ML IV (11:15)
[2024-06-07] MEDS: LIDOCAINE 1% W/EPI 1:100,000 20ML VIAL 20 ML (11:22)
--- NOTE | 2024-06-07 11:34 | P.OP_ITS ---
Date of procedure: 06/07/24 Pre-op Diagnosis:: Right carpal tunnel syndrome Post-op Diagnosis:: Same Procedure performed:: Right endoscopic carpal tunnel release Surgeon:: Watson Graham DO [facility] AIDE:: Marky Stevens Anesthesia: MAC and local Estimated blood loss (mL): 0 Operative findings:: See dictation Operative note:: 49-year-old male presents today for carpal tunnel release on the right side. Patient was identified in preoperative holding. Right wrist marked with yes and my initials. Transferred operative suite placed upon operating bed. Given sedation. Right upper extremity was prepped and draped normal sterile fashion. Once prepped and draped final operative timeout performed to identify proper patient procedure and extremity. Everyone involved the case agreed. There is no counter indications to beginning. Did receive preoperative antibiotics. Marking pen was used to make planned incision over the volar wrist crease. Esmarch was used to exsanguinate the extremity and pneumatic tourniquet inflated to 250 mmHg. Local anesthesia was infiltrated to the incision site. Esmarch was used to exsanguinate the extremity pneumatic tourniquet inflated 250 mmHg. Skin knife is used to incise through skin careful dissection taken down the scissors retractors were placed careful dissection was taken down to identify the most proximal aspect of the transverse carpal ligament. Once identified the small dilator followed by the larger dilator were placed into the carpal tunnel. Followed by the 4.0 mm sled into the carpal tunnel. Camera was then placed transverse carpal ligament clearly seen superiorly within the wound. Probe was used to identify the most distal aspect the transverse carpal ligament. Rasp was used to remove soft tissue from the undersurface of tremors carpal ligament. Then the hook blade was placed into the sled and release of the transverse carpal ligament was performed under direct visualization. Complete release was obtained. And visualized. Sled was then removed. Irrigation of the wound performed. Skin closed with nylon stitch. Sterile dressing placed. Patient waken from sedation taken recovery in stable condition. Condition: stable Disposition: PACU Complications:: None apparent
[2024-06-07 11:40] VITALS: BP 120/55; PULSE 74; RESP 16; O2SAT 95
[2024-06-07 11:50] VITALS: BP 105/51; PULSE 75; RESP 16; O2SAT 95
[2024-06-07 12:00] VITALS: BP 111/56; PULSE 79; RESP 16; O2SAT 95
[2024-06-07 12:10] VITALS: BP 118/76; PULSE 78; RESP 16; O2SAT 97
== END 2024-06-07 12:15 | disposition home or self-care (01) ==
PROVIDERS: PCP Nurse Practitioner Family; Visit Provider Orthopaedic Surgery
PROC: (CPT 64721; principal; 2024-06-07 10:45)
DX: G56.01 Carpal tunnel syndrome, right upper limb (principal)
CPT/HCPCS: 29848; 96374; J0690; J2250; J2704; J7120

== ENCOUNTER 2025-05-02 10:10 | Outpatient (CLI) | payer OTHER, SELFPAY ==
--- OUTSIDE RECORDS SUMMARY | 2010-06-19 10:15 | XMS_ITS | Continuity of Care Document ---
Author Organization [facility] Address [address] [place] [address] Phone Care Team Providers Care Home Care Administrator Name Role Phone Link Valentine WOOD Unavailable Unavailable Procedures Procedure Date OFFICE/OUTPATIENT VISIT, NEW Advance Directives Directive Yes / No Effective Date File Name No Information Encounters Encounter Description Practice Location Reason(s) For Visit Diagnoses Date Provider Providers Copied on Encounter OFFICE/OUTPAT IENT VISIT, NEW [facility], [address] [place], [address], [place] tel:[phone] [facility] No Information Link Valentine. [address], [place], [id number], [place]. tel:[phone] Family History Family Member Type Diagnosis Age At Onset No Information Payers Payer name Insurance type Covered libertarian ID Authoriza tion(s) No Information Social History Type Description Quantity Date Captured Comments Sex Male Smoking Status No Information Chief Complaint And Reason For Visit No Information Reason For Referral Reason For Referral No Information History Of Present Illness Encounter Date Complaint History Of Prese nt Illness No Information Functional Status Date Functional Assessmen t No Information Instructions Date Instruction Additional Infor mation No Information Assessments Type Assessment Date No Information Patient Care Teams Name Effective Dates (start - stop) Status Members No Information
[2025-05-02 13:51] LABS: Microscopic, Urine URINE MICROSCOPIC (MICROSCOPIC)
[2025-05-02 14:24] LABS: Hematocrit 48.6 % (42.0-52.0); Hemoglobin 16.2 g/dL (14.1-18.0); Immature Granulocytes % 0.4 %; Mean Corpuscular HGB Conc 33.3 g/dL (31.8-35.4); Mean Corpuscular Hemoglobin 29.3 pg (27.0-31.2); Mean Corpuscular Volume 87.9 fl (80-94); Nucleated Red Blood Cells % 0 %; Platelet Count 196 K/mm3 (142-424); Red Blood Count 5.53 M/mm3 (4.60-6.20); Red Cell Distribution Width-SD 41.7 fL; White Blood Count 5.2 K/mm3 (4.8-10.8)
[2025-05-02 14:53] LABS: Bilirubin,Urine Negative (Negative); Color,Urine YELLOW (Yellow); Glucose,Urine (UA) Negative (Negative); Ketones,Urine Negative (Negative); Leukocyte Esterase,Urine Negative (Negative); PH,Urine 7.0 (5.0-8.5); Protein,Urine Negative (Negative); Specific Gravity, Urine 1.010 (1.005-1.030); Urobilinogen,Urine 0.2 EU/dl (0.2)
[2025-05-02 15:08] LABS: Squamous Epithelial Cell,Urine Occasional #/hpf (0-5); WBC,Urine Occasional #/hpf (0-3)
[2025-05-02 15:18] LABS: Albumin Level 4.9 g/dl (3.5-5.0); Chloride 100 mmol/L (98-107)
[2025-05-02 15:19] LABS: Potassium 4.1 mmoL/L (3.5-5.1); Sodium 136 mmol/L (136-145)
[2025-05-02 15:21] LABS: Alanine Aminotransferase 25 U/L (12-78); Anion Gap 12.1 mEq/L (5-15); Aspartate Amino Transferase 41 U/L (17-59); Blood Urea Nitrogen 4 mg/dl (9-20); Carbon Dioxide 28 mmol/L (22.0-30.0); Creatinine,Serum 0.90 mg/dl (0.66-1.25); Estimated Glomerular Filt Rate 89 ml/min (>60); GFR (African American) 108 ML/MIN (>60)
[2025-05-02 15:22] LABS: Albumin/Globulin Ratio 2.0 (1.1-1.8); Alkaline Phosphatase 77 U/L (38-126); Bilirubin,Total 0.9 mg/dl (0.2-1.3); Calcium 9.4 mg/dl (8.4-10.2); Cholesterol 235 mg/dl (140-200); Globulin 2.4 g/dL (1.3-3.2); Glucose 88 mg/dl (74-100); HDL Cholesterol 62 mg/dl (40-60); Total Protein,Serum 7.3 g/dl (6.3-8.2); Triglycerides 107 mg/dl (30-150)
[2025-05-02 15:36] LABS: Hemoglobin A1C 5.6 % (4.0-6.0)
[2025-05-02 15:38] LABS: Free T4 (Free Thyroxine) 1.30 ng/dl (0.78-2.19)
[2025-05-02 15:59] LABS: 25-OH Vitamin D, Total 31.1 ng/mL (30-100)
[2025-05-02 16:48] LABS: Thyroid Stimulating Hormone 1.38 uIU/mL (0.465-4.68)
[2025-05-02 19:01] LABS: Vitamin B12 443 pg/mL (239-931)
--- OUTSIDE RECORDS SUMMARY | 2025-05-03 15:18 | XMS_ITS | Referral Summary ---
Author Organization [facility] Address [address] [place] [address] Care Team Providers Care Molasses And Caramel Operator Name Role Phone Pcp, None MD Primary Care Provider [phone] Allergies No known active allergies Medications No known medications Active Problems No known active problems Immunizations Immunization Administration Dates Next Due Tdap (Tetanus, Diphtheria & Pertussis) 6 Social History Tobacco Use Types Packs/Day Years Used Date Smoking Tobacco: Every Day Cigarettes Tobacco Cessation:Ready to Q uit: Yes; Counseling Given: Yes Alcohol Use Standard Drinks/Week Comments No 0 (1 standard drink = 0.6 oz pur e alcohol) Sex and Gender Information Value Date Recorded Sex Assigned at Not on file Legal Sex Male 6:51 PM EDT Gender Identity Not on file Sexual Orientation Not on file Last Filed Vital Signs Vital Sign Reading Time Taken Comments Blood Pressure 141/83 04/14/2016 10:28 AM EDT Pulse 72 04/14/2016 10:28 AM EDT Temperature 36.6 C (97.9 F) 04/14/2016 10:28 AM EDT Respiratory Rate 12 03/23/2016 7:28 AM EDT Oxygen Saturation 98% 03/23/2016 5:54 AM EDT Inhaled Oxygen Concentration - - Weight 84.4 kg (186 lb) 04/14/2016 10:28 AM EDT Height 173.4 cm (5' 8.27 ) 04/14/2016 10:28 AM E DT Body Mass Index 28.06 04/14/2016 10:28 AM EDT Plan of Treatment Not on file Insurance [employer] SELF INSURED Member Subscriber Plan / Payer ( fective 2016-Present) Name:Kahlil Valentin Jr. Relation to Subscriber:Self Name:Kahlil Valentin Jr. Payer ID:[id number] Type:Not on file Address: [employer] [address] [address] Care Teams Molasses And Caramel Operator Relationship Specialty Start Date End Date Pcp, Ani, PCP - General Internal Medicine 04/04/21
--- OUTSIDE RECORDS SUMMARY | 2025-05-03 15:18 | XMS_ITS | Clinical Summary ---
Author Organization [facility] Address [address] [place] [address] Care Team Providers Care Dairy Lab Technician Name Role Phone Pcp, No Primary Care Provider [phone] Source Comments This information has been disclosed to you from confidential records protectedfrom disclosure by state law. You shall make no further disclosure of thisinformation without the specific, written, and informed release of theindividual to whom it pertains, or as otherwise permitted by law. A generalauthorization for the release of medical or other information is not sufficientfor the purposes of therelease of HIV test results or diagnoses. [id number] Allergies No known active allergies Medications No known medications Active Problems Problem Noted Date Diagnosed Date Polyuria 12/11/2008 Family History Medical History Relation Comments Diabetes Neg Hx Hypertension Neg Hx Social History Tobacco Use Types Packs/Day Years Used Date Smoking Tobacco: Every Day Cigarettes Alcohol Use Standard Drinks/Week Comments No 0 (1 standard drink = 0.6 oz pur e alcohol) Sex and Gender Information Value Date Recorded Sex Assigned at Not on file Legal Sex Male 8:12 PM EST Gender Identity Not on file Sexual Orientation Not on file Last Filed Vital Signs Vital Sign Reading Time Taken Comments Blood Pressure - - Pulse - - Temperature - - Respiratory Rate - - Oxygen Saturation - - Inhaled Oxygen Concentration - - Weight 88.5 kg (195 lb) 12/21/2016 10:55 AM EDT Height 175.3 cm (5' 9 ) 12/21/2016 10:55 AM EDT Body Mass Index 28.8 12/21/2016 10:55 AM EDT Plan of Treatment Not on file Insurance [employer] Care Teams Dairy Lab Technician Relationship Specialty Start Date End Date Pcp, No No Address PCP - General Pediatrics 12/11/16
--- OUTSIDE RECORDS SUMMARY | 2025-05-03 15:18 | XMS_ITS | Clinical Summary ---
Author Organization [facility] Address [address] [place] [address] Care Team Providers Care Embedded Systems Developer Name Role Phone Unavailable Primary Care Provider Unavailabl e Allergies No known active allergies Medications loratadine-pseud oephedrine (CLARITIN-D 12HR) 5-120 MG per extended release tablet Take 1 tablet by mouth 2 times daily 30 tablet 2022 Active Social History Tobacco Use Types Packs/Day Years Used Date Smoking Tobacco: Some Days Cigarettes Smokeless Tobacco: Never Alcohol Use Standard Drinks/Week Comments No 0 (1 standard drink = 0.6 oz pur e alcohol) Sex and Gender Information Value Date Recorded Sex Assigned at Male 10/11/2021 2:22 PM EST Legal Sex Male 1:45 AM EST Gender Identity Male 10/11/2021 2:22 PM EST Sexual Orientation Straight 10/11/2021 2: 22 PM EST Last Filed Vital Signs Vital Sign Reading Time Taken Comments Blood Pressure 174/94 2022 3:52 PM EDT Pulse 81 2022 3:52 PM EDT Temperature 36.9 C (98.4 F) 2022 3:52 PM EDT Respiratory Rate 16 2022 3:52 PM EDT Oxygen Saturation 97% 2022 3:52 PM EDT Inhaled Oxygen Concentration - - Weight 78.4 kg (172 lb 13.5 oz) 2022 3:52 PM EDT Height 175.3 cm (5' 9 ) 2022 3:5 2 PM EDT Body Mass Index 25.52 2022 3:52 PM EDT Plan of Treatment Not on file Advance Directives Documents on File Type Date Recorded Patient Emissions Testing Technician Expl anation ACP-Advance Directive 12/08/2016 10:39 AM ACP-Advance Directive 01/10/2015 2:44 PM ACP-Advance Directive 05/10/2013 3:10 AM ACP-Advance Directive 05/10/2013 3:10 AM ACP-Advance Directive 05/10/2013 3:10 AM
--- OUTSIDE RECORDS SUMMARY | 2025-05-03 15:18 | XMS_ITS | Clinical Summary ---
Author Organization [facility] Address [address] [place] [address] Care Team Providers Care Multimedia Educational Specialist Name Role Phone Pcp, None MD Primary Care Provider [phone] Allergies No known active allergies Medications No known medications Active Problems No known active problems Immunizations Immunization Administration Dates Next Due Tdap (Tetanus, Diphtheria & Pertussis) 6 Family History Medical History Relation Name Comments High BP Mother Relation Name Status Comments Mother Social History Tobacco Use Types Packs/Day Years [...] 04/14/2016 10:28 AM EDT Plan of Treatment Health Maintenance Due Date Last Done Comments Colonoscopy 2019 PSA YEARLY 01/04/2024 Pneumococcal 50+ (1 of 1 - PCV) 01/04/2024 Shingrix (#1) 01/04/2024 Influenza Vaccine (#1) 2025 DTap,Tdap,and Td (2 - Td or Tdap) 03/23/2026 016 RSV Vaccine (60+ or ) (1 - 1-dose 75+ series) 2049 HPV Aged Out No longer eligi ble based on patient's age to complete this topic Meningococcal conjugate elisabet nt 4 (MCV4) Aged Out No longer eligible b ased on patient's age to complete this topic RSV Immunization (<20 months) Aged Out No longer eligible based on patient's age to complete this topic Insurance SELF INSURED Member Subscriber Plan / Payer (Ef fective 2016-Present) Name:Kahlil Valentin Jr. Relation to Subscriber:Self Name:Kahlil Valentin Jr. Payer ID:[id number] Type:Not on file Address: [facility] [address] [place], [place] [id number] Care Teams Multimedia Educational Specialist Relationship Specialty Start Date End Date Pcp, MD Ani PCP - General Internal Medicine 04/04/21
== END 2025-05-02 23:59 | disposition home or self-care (01) ==
LOC: LAB.DROPOF 05-03 15:14
PROVIDERS: PCP Nurse Practitioner Family; Visit Provider Nurse Practitioner Family
DX: E53.8 Deficiency of other specified B group vitamins (principal); E55.9 Vitamin D deficiency, unspecified; E78.5 Hyperlipidemia, unspecified; G47.33 Obstructive sleep apnea (adult) (pediatric); I10 Essential (primary) hypertension; Z12.5 Encounter for screening for malignant neoplasm of prostate; Z72.0 Tobacco use; R53.83 Other fatigue; E11.9 Type 2 diabetes mellitus without complications; R41.3 Other amnesia
CPT/HCPCS: 80053; 80061; 81001; 82306; 82607; 83036; 84156; 84439; 84443; 85025; G0103

== ENCOUNTER 2025-05-10 07:33 | Outpatient (CLI) | payer OTHER, SELFPAY ==
--- OUTSIDE RECORDS SUMMARY | 2010-06-19 10:15 | XMS_ITS | Continuity of Care Document ---
[facility] Address [address] [place] [address] Phone Care Team Providers Care Cutting And Printing Machine Operator Name Role Phone Link Valentine WOOD Unavailable Unavailable Procedures Procedure Date OFFICE/OUTPATIENT VISIT, NEW Advance Directives Directive Yes / No Effective Date File Name No Information Encounters Encounter Description Practice Location Reason(s) For Visit Diagnoses Date Provider OFFICE/OUTPATIE NT VISIT, NEW [facility], [address] [place], [address], [place] tel:[phone] [facility] No Information 2009 Link Valentine. [address] [place], [id number], [place]. tel:[phone] Family History Family Member Type Diagnosis Age At Onset No Information Payers Payer name Insurance type Covered alliance party ID Authoriza tion(s) No Information Social History Type Description Quantity Date Captured Comments Sex Male Smoking Status No Information Chief Complaint And Reason For Visit No Information History Of Present Illness Encounter Date Complaint History Of Prese nt Illness No Information Instructions Date Instruction Additional Infor mation No Information Assessments Type Assessment Date No Information
--- NOTE | 2025-05-10 07:30 | CT_ITS ---
FINAL REPORT TECHNIQUE: Thin section axial images were obtained through the lungs using a low-dose technique per lung cancer screening protocol. Reconstruction images were obtained using the axial data. Exam was performed using dose reduction technique. This study was performed with techniques to keep radiation doses as low as reasonably achievable (ALARA). Individualized dose reduction techniques using automated exposure control or adjustment of mA and/or kV according to the patient's size were employed. CLINICAL HISTORY: lung cancer screening, current smoker 1/2ppd for 20 years COMPARISON: 02/16/2024 FINDINGS: CTDLvol: 2.90 DLP: 102.12 Current smoker 10 pack year history Lungs: No acute pulmonary abnormality. There are stable bilateral predominantly upper lobe subpleural nodules noted. These were seen on the prior CT of 02/16/2024. No new nodules or areas of consolidation are identified. There is an index nodule in the left upper lobe, subpleural, best seen on image #14 of series 4, measuring 3 mm in size, stable. There is an index right upper lobe nodule best seen on image #23 of series 4, measuring 7 mm in size also stable. Note is made of tracheal and right mainstem bronchus secretions. Lymph nodes: No thoracic lymphadenopathy. Mediastinum: Heart size is normal. Pleura/pericardium: No pleural or pericardial effusion. Other: No acute abnormality in the upper abdomen. IMPRESSION: Stable bilateral predominantly upper lobe subpleural nodules when compared to the prior LDCT of 02/16/2024. Lung RADS: 2 Recommendation: 12-month follow-up LDCT. Reviewed, Interpreted and Dictated by Ana Ghosh MD Transcribed by Stephanie Braga Authenticated and [facility]
--- OUTSIDE RECORDS SUMMARY | 2025-05-10 07:35 | XMS_ITS | Clinical Summary ---
Author Organization [facility] Address [address], [address] [place] [address] Care Team Providers Care Commissary Superintendent Name Role Phone Unavailable Primary Care Provider [...] Documents on File Type Date Recorded Patient Gear Shaper Set Up Operator Expl anation ACP-Advance Directive 12/08/2016 10:39 AM ACP-Advance Directive 01/10/2015 2:44 PM ACP-Advance Directive 05/10/2013 3:10 AM ACP-Advance Directive 05/10/2013 3:10 AM ACP-Advance Directive 05/10/2013 3:10 AM
--- OUTSIDE RECORDS SUMMARY | 2025-05-10 07:35 | XMS_ITS | Clinical Summary ---
Author Organization [facility] Address [address] [place] [address] Care Team Providers Care Five Roll Refiner Batch Mixer Name Role Phone Pcp, No Primary Care [...] therelease of HIV test results or diagnoses. [id number] Allergies No known active allergies Medications [...] Not on file Insurance [employer] Care Teams Five Roll Refiner Batch Mixer Relationship Specialty Start Date End Date Pcp, No No Address PCP - General Pediatrics 12/11/16
== END 2025-05-10 23:59 | disposition home or self-care (01) ==
LOC: RAD 07:33
PROVIDERS: PCP Nurse Practitioner Family; Visit Provider Nurse Practitioner Family
DX: R91.8 Other nonspecific abnormal finding of lung field (principal); Z12.2 Encounter for screening for malignant neoplasm of respiratory organs; Z87.891 Personal history of nicotine dependence
CPT/HCPCS: 71271

== ENCOUNTER 2025-07-06 09:00 | Outpatient (CLI) | payer OTHER, SELFPAY ==
--- OUTSIDE RECORDS SUMMARY | 2010-06-19 10:15 | XMS_ITS | Continuity of Care Document ---
[facility] Address [address] [place] [address] Phone Care Team Providers Care Insurance Agents Supervisor Name Role Phone Link Valentine WOOD Unavailable Unavailable Procedures Procedure Date OFFICE/OUTPATIENT VISIT, NEW Advance Directives Directive Yes / No Effective Date File Name No Information Encounters Encounter Description Practice Location Reason(s) For Visit Diagnoses Date Provider OFFICE/OUTPATIE NT VISIT, NEW [facility], [address] [place], [address], [place] tel:[phone] [facility] No Information 2009 Link Valentine. [address] [place], [place], [id number], [place]. tel:[phone] Family History Family Member Type Diagnosis Age [...]
[2025-07-06 16:23] LABS: Coronavirus 19, PCR Not Detected (NotDetected); Influenza A, PCR Not Detected (NotDetected); Influenza B, PCR Not Detected (NotDetected)
--- OUTSIDE RECORDS SUMMARY | 2025-07-09 11:00 | XMS_ITS | Clinical Summary ---
Author Organization [facility] Address [address] [place] [address] Care Team Providers Care Health Plan Specialist Name Role Phone Pcp, No Primary Care [...] therelease of HIV test results or diagnoses. [id number] Allergies No known active allergies Medications [...] Not on file Insurance [employer] Care Teams Health Plan Specialist Relationship Specialty Start Date End Date Pcp, No No Address PCP - General Pediatrics 12/11/16
--- OUTSIDE RECORDS SUMMARY | 2025-07-09 11:00 | XMS_ITS | Clinical Summary ---
Author Organization [facility] Address [address], [address] [place] [address] Care Team Providers Care Food Safety Officer Name Role Phone Unavailable Primary Care Provider [...] Height 175.3 cm (5' 9 ) 2022 3:52 PM EDT Body Mass Index 25.52 2022 3:52 PM EDT Plan of Treatment Not on file Advance Directives Documents on File Type Date Recorded Patient Marketing Trainee Expl anation ACP-Advance Directive 12/08/2016 10:39 AM ACP-Advance Directive 01/10/2015 2:44 PM ACP-Advance Directive 05/10/2013 3:10 AM ACP-Advance Directive 05/10/2013 3:10 AM ACP-Advance Directive 05/10/2013 3:10 AM
== END 2025-07-06 23:59 ==
LOC: LAB.DROPOF 07-09 10:53
PROVIDERS: PCP Nurse Practitioner; Visit Provider Nurse Practitioner
DX: J06.9 Acute upper respiratory infection, unspecified (principal)
CPT/HCPCS: 87631

== ENCOUNTER 2025-07-28 11:12 | Outpatient (CLI) | payer OTHER, SELFPAY ==
--- OUTSIDE RECORDS SUMMARY | 2010-06-19 10:15 | XMS_ITS | Continuity of Care Document ---
[facility] Organization [facility] Address [address] [place] [address] Phone Care Team Providers Care Melter Helper Name Role Phone Link Valentine WOOD Unavailable Unavailable Procedures Procedure Date OFFICE/OUTPATIENT VISIT, NEW Advance Directives Directive Yes / No Effective Date File Name No Information Encounters Encounter Description Practice Location Reason(s) For Visit Diagnoses Date Provider OFFICE/OUTPATIE NT VISIT, NEW [facility], [address] [place], [address], [place] tel:[phone] [facility] No Information 2009 Link Valentine. [address] [place], [id number], [place]. tel:[phone] Family History Family Member Type Diagnosis Age At Onset No Information Payers Payer name Insurance type Covered green party ID Authoriza tion(s) No Information Social History Type Description Quantity Date Captured Comments Sex Male Smoking Status No Information Chief Complaint And Reason For Visit No Information History Of Present Illness Encounter Date Complaint History Of Prese nt Illness No Information Instructions Date Instruction Additional Infor mation No Information Assessments Type Assessment Date No Information
--- OUTSIDE RECORDS SUMMARY | 2025-07-28 11:15 | XMS_ITS | Clinical Summary ---
Author Organization [facility] Address [address] [place] [address] Care Team Providers Care Wet Plant Operator Name Role Phone Pcp, No Primary Care [...] therelease of HIV test results or diagnoses. [id number] Allergies No known active allergies Medications [...] Not on file Insurance [employer] Care Teams Wet Plant Operator Relationship Specialty Start Date End Date Pcp, No No Address PCP - General Pediatrics 12/11/16
--- OUTSIDE RECORDS SUMMARY | 2025-07-28 11:15 | XMS_ITS | Clinical Summary ---
Author Organization [facility] Address [address], [address] [place] [address] Care Team Providers Care Cardiovascular Specialist Name Role Phone Unavailable Primary Care Provider [...] Documents on File Type Date Recorded Patient Staff Development Manager Expl anation ACP-Advance Directive 12/08/2016 10:39 AM ACP-Advance Directive 01/10/2015 2:44 PM ACP-Advance Directive 05/10/2013 3:10 AM ACP-Advance Directive 05/10/2013 3:10 AM ACP-Advance Directive 05/10/2013 3:10 AM
--- OUTSIDE RECORDS SUMMARY | 2025-07-28 11:15 | XMS_ITS | Clinical Summary ---
Author Organization [facility] Address [address] [place] [address] Care Team Providers Care Hitcher Name Role Phone Pcp, None MD Primary Care Provider [phone] Allergies No known active allergies Medications No [...] Relation to Subscriber:Self Name:Kahlil Valentin Jr. Payer ID:[id number] Type:Not on file Address: [facility] [address] [place], [place] [id number] Care Teams Hitcher Relationship Specialty Start Date End Date Pcp, MD Ani PCP - General Internal Medicine 04/04/21
--- NOTE | 2025-07-28 11:23 | XR_ITS ---
PROCEDURE INFORMATION: Exam: XR Chest Exam date and time: 07/28/2025 11:16 AM Age: 50 years old Clinical indication: Cough TECHNIQUE: Imaging protocol: Radiologic exam of the chest. Views: 2 views. COMPARISON: CT LUNG SCREENING 05/10/2025 7:39 AM FINDINGS: Lungs: Lungs are well aerated without a focal area of consolidation. Subtle opacity in the right mid lung likely summation of structures. Pleural spaces: Unremarkable. No pleural effusion. No pneumothorax. Heart/Mediastinum: Unremarkable. No cardiomegaly. Bones/joints: Unremarkable. IMPRESSION: Lungs are well aerated without a focal area of consolidation.
== END 2025-07-28 23:59 | disposition home or self-care (01) ==
LOC: RAD 11:13
PROVIDERS: PCP Nurse Practitioner Family; Visit Provider Student in an Organized Health Care Education/Training Program
DX: R05.9 Cough, unspecified (principal)
CPT/HCPCS: 71046